=== PATIENT | male | born 1985 | race Caucasian/White ===

== ENCOUNTER 2021-07-20 18:55 | Emergency (ER) | payer BC ==
[2021-07-20] MEDS ORDERED: Doxycycline 100 MG Cap PO ONE (19:40)
[2021-07-20] MEDS ORDERED: Sulfamethoxazole/Trimethoprim 800-160 MG Tab PO ONE (19:40)
--- NOTE | 2021-07-20 19:48 | EDM.PDOC ---
ED HPI GENERAL MEDICAL PROBLEM - General Chief Complaint: Skin Complaint Stated Complaint: POSSIBLE STAPH INFECTION ON LEG Time Seen by Provider: 07/20/21 19:31 - History of Present Illness INITIAL COMMENTS - FREE TEXT/NARRATIVE: HISTORY AND PHYSICAL: History of present illness: This is a 36-year-old gentleman with no significant past medical history presents ER today secondary to area of infection to his right upper inner thigh that he identified approximately 2 to 3 days ago. Patient started getting himself injections of oxytetracycline which was intended for animal use. Patient reports that he came to the ED for further evaluation. He reports that the infection has been improving however he want to make sure that he was treating it properly so he came to the ER. Patient denies any recent fevers, shakes, chills, vomiting, diarrhea, seizure, frequency, urgency. Patient has any chest pain or shortness of breath. Patient does complain of some nausea with no vomiting or diarrhea. Review of systems: As per history of present illness and below otherwise all systems reviewed and negative. Past medical history: As per history of present illness and as reviewed below otherwise noncontributory. Surgical history: As per history of present illness and as reviewed below otherwise noncontributory. Social history: No reported history of drug abuse. Family history: As per history of present illness and as reviewed below otherwise noncontributory. Physical exam: This patient was seen and evaluated during the 2019 SARS-CoV-2 novel coronavirus pandemic period. Community viral transmission is ongoing at time of this encounter and the emergency department is operating under pandemic response procedures. Constitutional: Patient is oriented to person, place, and time. Appears well- developed and well-nourished. No distress. HEENT: Moist mucous membranes Head: Normocephalic and atraumatic Eyes: Right eye exhibits no discharge. Left eye exhibits no discharge. No scleral icterus Neck: Normal range of motion. No tracheal deviation present. Cardiovascular: Normal rate and regular rhythm. Pulmonary: Effort normal, no respiratory distress. Abdominal: No distention Musculoskeletal: Normal range of motion Neurologic: Alert and oriented to person, place and time. Skin: [place], warm and dry. Psychiatric: Normal mood and affect. Behavior is normal. Judgment and thought content normal. Nursing note and vital signs have been reviewed Patient's ER physical exam is significant for a 6 x 4 cm area of erythema and warmth to his right upper inner thigh without any vesicles fluctuance or discharge. Patient does have some tender right inguinal lymphadenopathy. Diagnostics: [] Therapeutics: [] Assessment and plan: 36-year-old gentleman who presents ER today secondary to cellulitis of his right upper inner thigh. Is unclear whether or not this might be a tickborne illness versus staph infection. Patient be discharged home with a prescription for Bactrim and doxycycline to cover for both. Patient has been instructed to follow-up with her doctor in 2 days for reevaluation and wound check. Reassessment at the time of disposition demonstrates that the patient is in no a cute distress. The patient has remained stable throughout the entire ED visit and is without objective evidence for acute process requiring urgent intervention or hospitalization. The patient is stable for discharge, counseling is provided as documented above, discussed symptomatic treatment and specific conditions for return. I have spoken with the patient/caregiver and discussed todays findings, in addition to providing specific details for the plan of care. Questions are answered and there is agreement with the plan. Definitive disposition and diagnosis as appropriate pending reevaluation and review of above. Right Upper Thigh Pain Score (Numeric/FACES): 6 - Related Data Allergies Allergy/AdvReac Type Severity Reaction Status Date / Time No Known Allergies Allergy Verified 07/20/21 19:31 Home Meds: Home Meds Doxycycline Hyclate [Vibramycin] 100 mg PO BID #20 cap 07/20/21 [Rx] Sulfamethoxazole/Trimethoprim [Bactrim Ds Tablet] 2 each PO BID #40 tablet 07/20/21 [Rx] Past Medical History Cardiovascular History: Reports: Hypertension Psychiatric History: Reports: Anxiety Dermatologic History: Reports: Other (See Below) Other Dermatologic History: MRSA - Infectious Disease History Infectious Disease History: Reports: MRSA Social & Family History - Tobacco Use Tobacco Use Status *Q: Never Tobacco User Second Hand Smoke Exposure: No - Recreational Drug Use Recreational Drug Use: No ED ROS GENERAL - Review of Systems Review Of Systems: See Below ED EXAM, SKIN/RASH Exam: See Below Course - Vital Signs Last Recorded V/S: Last Vital Signs Temp 96.9 F 07/20/21 19:27 Pulse 109 H 07/20/21 19:27 Resp 16 07/20/21 19:27 BP 155/85 H 07/20/21 19:27 Pulse Ox 96 07/20/21 19:27 - Orders/Labs/Meds Meds: Medications Discontinued Medications Generic Name Dose Route Start Last Admin Trade Name Luz PRN Reason Stop Dose Admin Doxycycline Hyclate 100 mg 07/20/21 19:40 Doxycycline 100 Mg Cap PO 07/20/21 19:41 ONETIME ONE Trimethoprim/Sulfamethoxazole 2 tab 07/20/21 19:40 Sulfamethoxazole/Trimethoprim 800-160 Mg Tab PO 07/20/21 19:41 ONETIME ONE Departure - Departure Time of Disposition: 19:49 Disposition: Home, Self-Care 01 Condition: Good Clinical Impression: Cellulitis - Discharge Information Instructions: Cellulitis, Adult Referrals: Chel Navarro NP [Primary Care Provider] - Additional Instructions: Your seen and evaluated in ER today secondary to a cellulitis to your right upper inner thigh. You will be given 2 antibiotics to cover for staph as well as other possible tickborne illnesses. You need to take Bactrim DS 2 pills twice a day for 10 days as well as doxycycline 100 mg twice a day for 10 days. Please make an appointment to see your family doctor in 2 to 3 days for reevaluation. Return to the ER sooner if you develop any new or concerning symptoms. The following information is given to patients seen in the emergency department who are being discharged to home. This information is to outline your options for follow-up care. We provide all patients seen in our emergency department with a follow-up referral. The need for follow-up, as well as the timing and circumstances, are variable depending upon the specifics of your emergency department visit. If you don't have a primary care physician on staff, we will provide you with a referral. We always advise you to contact your personal physician following an emergency department visit to inform them of the circumstance of the visit and for follow-up with them and/or the need for any referrals to a consulting specialist. The emergency department will also refer you to a specialist when appropriate. This referral assures that you have the opportunity for follow-up care with a specialist. All of these measure are taken in an effort to provide you with optimal care, which includes your follow-up. Under all circumstances we always encourage you to contact your private physician who remains a resource for coordinating your care. When calling for follow-up care, please make the office aware that this follow-up is from your recent emergency room visit. If for any reason you are refused follow-up, please contact the [facility] Emergency Department at and asked to speak to the emergency department charge nurse. [facility] [address] [place] [id number] [id number] Sepsis Event Note (ED) - Evaluation Sepsis Screening Result: No Definite Risk - Focused Exam Vital Signs: Vital Signs Temp Pulse Resp BP Pulse Ox 07/20/21 19:27 96.9 F 109 H 16 155/85 H 96
== END 2021-07-20 19:53 | disposition home or self-care (01) ==
LOC: MW.ED 18:55
DX: L03.115 Cellulitis of right lower limb (principal); I10 Essential (primary) hypertension
CPT/HCPCS: 99283; A9270

== ENCOUNTER 2021-08-11 02:29 | Emergency (ER) | payer BC ==
--- NOTE | 2021-08-11 02:32 | EDM.PDOC ---
ED HPI GENERAL MEDICAL PROBLEM - General Stated Complaint: HEART ATTACK Time Seen by Provider: 08/11/21 02:32 Source of Information: Reports: Patient History Limitations: Reports: No Limitations - History of Present Illness INITIAL COMMENTS - FREE TEXT/NARRATIVE: 36-year-old male past medical history umbilical hernia defect, recent COVID-19 infection released from quarantine 1 week ago presents for chest pain. Patient states that he woke up around 1 hour prior to arrival with the pain in his substernal chest/midepigastrium radiating into his right shoulder and upper back. He has not had pain like this in the past. He notes mild shortness of breath. He notes nausea and did have one episode of vomiting. Notes that he has been feeling much better from his recent COVID-19 infection until today. chest/epigastric Pain Score (Numeric/FACES): 10 - Related Data Allergies Allergy/AdvReac Type Severity Reaction Status Date / Time No Known Allergies Allergy Verified 08/11/21 02:35 Home Meds: Home Meds Nebivolol [Bystolic] 10 mg PO DAILY 08/11/21 [History] Past Medical History Cardiovascular History: Reports: Hypertension Psychiatric History: Reports: Anxiety Dermatologic History: Reports: Other (See Below) Other Dermatologic History: MRSA - Infectious Disease History Infectious Disease History: Reports: MRSA ED ROS GENERAL - Review of Systems Review Of Systems: Comprehensive ROS is negative, except as noted in HPI. ED EXAM, GENERAL - Physical Exam Exam: See Below Exam Limited By: No Limitations General Appearance: Alert, WD/WN, No Apparent Distress Ears: Hearing Grossly Normal Throat/Mouth: Normal Voice, No Airway Compromise Head: Atraumatic, Normocephalic Neck: Normal Inspection Respiratory/Chest: No Respiratory Distress, Lungs Clear, Normal Breath Sounds, No Accessory Muscle Use Cardiovascular: Normal Peripheral Pulses, Regular Rate, Rhythm, No Edema GI/Abdominal: Soft, Non-Tender, Other (Umbilical hernia defect easily reducible) Extremities: Normal Inspection Neurological: Alert, Normal Cognition, Normal Gait Psychiatric: Normal Affect, Normal Mood Skin Exam: Warm, Dry, Intact, Normal Color #1 Interpretation EKG Date: 08/11/21 Time: 02:32 Rhythm: NSR Rate (Beats/Min): 79 [place]: Normal P-Wave: Present QRS: Normal ST-T: Other (diffuse <1mm RJ concerning for pericarditis) OK/PQ Interval: 186 Comparison: NA - No Prior EKG EKG Interpretation Comments: possible pericarditis Course - Vital Signs Last Recorded V/S: Last Vital Signs Temp 97.5 F 08/11/21 02:30 Pulse 76 08/11/21 03:30 Resp 16 08/11/21 03:30 BP 134/75 08/11/21 03:30 Pulse Ox 95 08/11/21 03:30 - Orders/Labs/Meds Orders: Active Orders 24 hr Category Date Time Status Nitroglycerin [Nitrostat] Med 08/11/21 02:36 Active 0.4 mg SL Q5M PRN Saline Lock Insert [OM.PC] Stat Oth 08/11/21 02:37 Ordered Medication Orders Nitroglycerin (Nitroglycerin 0.4 Mg Tab.Sl) 0.4 mg SL Q5M PRN PRN Reason: Chest Pain Last Admin: 08/11/21 02:56 Dose: 0.4 mg Documented by: Admin: 08/11/21 02:49 Dose: 0.4 mg Documented by: SANDOVAL Labs: Laboratory Tests 08/11/21 08/11/21 08/11/21 Range/Units 02:50 02:50 02:50 WBC 6.06 (4.0-11.0) K/uL RBC 5.31 (4.50-5.90) M/uL Hgb 17.5 H (13.0-17.0) g/dL Hct 50.4 H (38.0-50.0) % MCV 94.9 (80.0-98.0) fL MCH 33.0 H (27.0-32.0) pg MCHC 34.7 (31.0-37.0) g/dL RDW Std Deviation 46.2 (28.0-62.0) fl RDW Coeff of Hilda 13 (11.0-15.0) % Plt Count 422 H (150-400) K/uL MPV 11.20 (7.40-12.00) fL Neut % (Auto) 56.5 (48.0-80.0) % Lymph % (Auto) 32.7 (16.0-40.0) % [place] % (Auto) 9.2 (0.0-15.0) % Eos % (Auto) 1.3 (0.0-7.0) % Baso % (Auto) 0.3 (0.0-1.5) % Neut # (Auto) 3.4 (1.4-5.7) K/uL Lymph # (Auto) 2.0 (0.6-2.4) K/uL [place] # (Auto) 0.6 (0.0-0.8) K/uL Eos # (Auto) 0.1 (0.0-0.7) K/uL Baso # (Auto) 0.0 (0.0-0.1) K/uL Nucleated RBC % 0.0 /100WBC Nucleated RBCs # 0 K/uL D-Dimer, Quantitative 0.25 (0.0-0.50) mg/L FEU Sodium 140 (136-148) mmol/L Potassium 5.0 (3.5-5.1) mmol/L Chloride 104 (98-107) mmol/L Carbon Dioxide 27.1 (21.0-32.0) mmol/L BUN 17 (7.0-18.0) mg/dL Creatinine 1.1 (0.8-1.3) mg/dL Est Cr Clr Drug Dosing 105.86 mL/min Estimated GFR (MDRD) > 60.0 ml/min Glucose 124 H (74-106) mg/dL Calcium 8.7 (8.5-10.1) mg/dL Magnesium 2.0 (1.8-2.4) mg/dL Total Bilirubin 0.5 (0.2-1.0) mg/dL AST 56 H (15-37) IU/L ALT 57 (14-63) IU/L Alkaline Phosphatase 69 (46-116) U/L Troponin I < 0.050 (0.000-0.056) ng/mL Total Protein 7.6 (6.4-8.2) g/dL Albumin 3.5 (3.4-5.0) g/dL Globulin 4.1 H (2.6-4.0) g/dL Albumin/Globulin Ratio 0.9 (0.9-1.6) Lipase 224 (73-393) U/L 08/11/21 Range/Units 05:00 WBC (4.0-11.0) K/uL RBC (4.50-5.90) M/uL Hgb (13.0-17.0) g/dL Hct (38.0-50.0) % MCV (80.0-98.0) fL MCH (27.0-32.0) pg MCHC (31.0-37.0) g/dL RDW Std Deviation (28.0-62.0) fl RDW Coeff of Hilda (11.0-15.0) % Plt Count (150-400) K/uL MPV (7.40-12.00) fL Neut % (Auto) (48.0-80.0) % Lymph % (Auto) (16.0-40.0) % [place] % (Auto) (0.0-15.0) % Eos % (Auto) (0.0-7.0) % Baso % (Auto) (0.0-1.5) % Neut # (Auto) (1.4-5.7) K/uL Lymph # (Auto) (0.6-2.4) K/uL [place]son # (Auto) (0.0-0.8) K/uL Eos # (Auto) (0.0-0.7) K/uL Baso # (Auto) (0.0-0.1) K/uL Nucleated RBC % /100WBC Nucleated RBCs # K/uL D-Dimer, Quantitative (0.0-0.50) mg/L FEU Sodium (136-148) mmol/L Potassium (3.5-5.1) mmol/L Chloride (98-107) mmol/L Carbon Dioxide (21.0-32.0) mmol/L BUN (7.0-18.0) mg/dL Creatinine (0.8-1.3) mg/dL Est Cr Clr Drug Dosing mL/min Estimated GFR (MDRD) ml/min Glucose (74-106) mg/dL Calcium (8.5-10.1) mg/dL Magnesium (1.8-2.4) mg/dL Total Bilirubin (0.2-1.0) mg/dL AST (15-37) IU/L ALT (14-63) IU/L Alkaline Phosphatase (46-116) U/L Troponin I < 0.050 (0.000-0.056) ng/mL Total Protein (6.4-8.2) g/dL Albumin (3.4-5.0) g/dL Globulin (2.6-4.0) g/dL Albumin/Globulin Ratio (0.9-1.6) Lipase (73-393) U/L Meds: Medications Generic Name Dose Route Start Last Admin Trade Name Lawrenceq PRN Reason Stop Dose Admin Nitroglycerin 0.4 mg 08/11/21 02:36 08/11/21 02:56 Nitroglycerin 0.4 Mg Tab.Sl SL 0.4 mg Q5M PRN Administration Chest Pain Discontinued Medications Generic Name Dose Route Start Last Admin Trade Name Freq PRN Reason Stop Dose Admin Aspirin 324 mg 08/11/21 02:36 08/11/21 02:49 Aspirin 81 Mg Tab.Chew PO 08/11/21 02:37 324 mg ONETIME ONE Administration Al Hydroxide/Mg Hydroxide 15 0 ml 08/11/21 02:36 08/11/21 02:55 ml/ Lidocaine HCl 5 ml PO 08/11/21 02:37 20 each ONETIME ONE Administration Famotidine 20 mg 08/11/21 02:36 08/11/21 02:48 Famotidine 20 Mg/2 Ml Sdv IVPUSH 08/11/21 02:37 20 mg ONETIME ONE Administration Lidocaine HCl Confirm 08/11/21 02:52 08/11/21 02:58 Lidocaine 2% Viscous Solution 15 Ml Cup Administered 08/11/21 02:53 Not Giv en Dose 15 ml .ROUTE .STK-MED ONE Morphine Sulfate 4 mg 08/11/21 03:04 08/11/21 03:12 Morphine 4 Mg/Ml Vial IVPUSH 08/11/21 03:05 4 mg ONETIME ONE Administration Oxycodone/Acetaminophen 1 tab 08/11/21 04:53 08/11/21 05:04 Acetaminophen/Oxycodone 325-5 Mg Tab PO 08/11/21 04:54 1 tab ONETIME ONE Administration - Re-Assessments/Exams Free Text/Narrative Re-Assessment/Exam: 08/11/21 03:03 Patient notes that his stomach and chest are feeling much better but he is still having significant back pain. Will trial morphine. 08/11/21 03:45 Initial troponin is negative. Will get a repeat troponin at 5 AM. 08/11/21 05:48 Repeat troponin is negative. Patient is well-appearing. No longer complaining of pain. Will discharge with instructions follow-up with primary care physician. Uncertainty of today's event was explained to patient. Return precautions were discussed. Departure - Departure Time of Disposition: 05:48 Disposition: Home, Self-Care 01 Condition: Good Clinical Impression: Chest pain Qualifiers: Chest pain type: unspecified Qualified Code(s): R07.9 - Chest pain, unspecified - Discharge Information Instructions: Nonspecific Chest Pain, Adult Referrals: Chel Navarro NP [Primary Care Provider] - Additional Instructions: The following information is given to patients seen in the emergency department who are being discharged to home. This information is to outline your options for follow-up care. We provide all patients seen in our emergency department with a follow-up referral. The need for follow-up, as well as the timing and circumstances, are variable depending upon the specifics of your emergency department visit. If you don't have a primary care physician on staff, we will provide you with a referral. We always advise you to contact your personal physician following an emergency department visit to inform them of the circumstance of the visit and for follow-up with them and/or the need for any referrals to a consulting specialist. The emergency department will also refer you to a specialist when appropriate. This referral assures that you have the opportunity for follow-up care with a specialist. All of these measure are taken in an effort to provide you with optimal care, which includes your follow-up. Under all circumstances we always encourage you to contact your private physician who remains a resource for coordinating your care. When calling for follow-up care, please make the office aware that this follow-up is from your recent emergency room visit. If for any reason you are refused follow-up, please contact the [facility] Emergency Department at and asked to speak to the emergency department charge nurse. Please follow up with your primary care physician. If you do not have a primary care physician, see below: [facility] [address] [place] [address] [id number] [address] [address] [facility] [address] [place] [id number] Sepsis Event Note (ED) - Focused Exam Vital Signs: Vital Signs Temp Pulse Resp BP BP Pulse Ox 08/11/21 03:30 76 16 134/75 95 08/11/21 02:56 130/75 08/11/21 02:49 156/101 H 08/11/21 02:30 97.5 F 72 18 156/101 H 97 - My Orders Last 24 Hours: My Active Orders 08/11/21 02:36 Nitroglycerin [Nitrostat] 0.4 mg SL Q5M PRN 08/11/21 02:37 Saline Lock Insert [OM.PC] Stat - Assessment/Plan Last 24 Hours: My Active Orders 08/11/21 02:36 Nitroglycerin [Nitrostat] 0.4 mg SL Q5M PRN 08/11/21 02:37 Saline Lock Insert [OM.PC] Stat
[2021-08-11] MEDS ORDERED: Aspirin 81 MG Tab.Chew PO ONE (02:36)
[2021-08-11] MEDS ORDERED: Famotidine 20 MG/2 ML SDV IVPUSH ONE (02:36)
[2021-08-11] MEDS ORDERED: Alum Hydrox/Mag Hydrox/Simeth 15 ML, Lidocaine 2% 5 ML PO ONE ×2 (02:36)
[2021-08-11] MEDS: Nitroglycerin 0.4 MG Tab.SL SL PRN ×2 (02:49→02:56)
[2021-08-11] MEDS ORDERED: Lidocaine 2% Viscous Solution 15 ML Cup ONE (02:52)
[2021-08-11] MEDS ORDERED: Aluminum Hydroxide/Magnesium Hydroxide/Simethicone XS Susp 30 ML Cup ONE (02:53)
[2021-08-11] MEDS ORDERED: Morphine 4 MG/ML VIAL IVPUSH ONE (03:04)
--- NOTE | 2021-08-11 03:38 | CR ---
Indication: Chest pain Technique: Chest 1 view Comparison: None Findings/Impression: Cardiovascular and mediastinum: Heart size and vasculature are normal in caliber and appearance. Mediastinum is within normal limits. Lungs and pleural space: Lungs are clear. No sign of infiltrate or mass. No sign of pleural effusion. No pneumothorax. Bones and soft tissues: No significant findings. Dictated by Bonnie Faulkner MD @ 08/11/2021 3:36:06 AM (Electronically Signed)
[2021-08-11 03:39] LABS: BLOOD UREA NITROGEN,BUN 17 mg/dL (7.0-18.0); CARBON DIOXIDE,CO2 27.1 mmol/L (21.0-32.0); CHLORIDE,CL 104 mmol/L (98-107); GLUCOSE RANDOM 124 mg/dL (74-106); LIPASE 224 U/L (73-393); SODIUM,NA 140 mmol/L (136-148)
[2021-08-11] MEDS ORDERED: Acetaminophen/oxyCODONE 325-5 MG Tab PO ONE (04:53)
== END 2021-08-11 05:55 | disposition home or self-care (01) ==
LOC: MW.ED 02:29
DX: R07.2 Precordial pain (principal); I10 Essential (primary) hypertension; Z79.899 Other long term (current) drug therapy
CPT/HCPCS: 36415; 71045; 80053; 83690; 83735; 84484; 85025; 85379; 93005; 96374; 96375; 99285; A9270; J2270; J3490

== ENCOUNTER 2024-06-17 16:53 | Emergency (ER) | payer BC ==
[2024-06-17 17:26] LABS: BASOPHILS ABSOLUTE AUTO 0.03 K/uL (0.00-0.20); BASOPHILS PERCENT AUTO 0.6 % (0.0-1.0); EOSINOPHILS ABSOLUTE AUTO 0.01 K/uL (0.00-0.45); EOSINOPHILS PERCENT AUTO 0.2 % (0.0-6.0); HEMATOCRIT 51.2 % (42.0-52.0); HEMOGLOBIN 18.3 g/dL (14.0-18.0); IMMATURE GRAN ABSOLUTE AUTO 0.01 K/uL (0.00-0.05); IMMATURE GRAN PERCENT AUTO 0.2 % (0.0-0.4); LYMPHOCYTES ABSOLUTE AUTO 1.92 K/uL (1.00-4.80); LYMPHOCYTES PERCENT AUTO 36.2 % (24.0-44.0); MEAN CORPUSCULAR HEMOGLOBIN 33.6 pg (28.0-32.0); MEAN CORPUSCULAR HGB CONC 35.7 g/dL (32.0-36.0); MEAN CORPUSCULAR VOLUME 94.1 fL (83.0-99.0); MEAN PLATELET VOLUME 9.5 fL (9.4-12.4); MONOCYTES ABSOLUTE AUTO 0.47 K/uL (0.00-0.80); MONOCYTES PERCENT AUTO 8.9 % (0.0-8.0); NEUTROPHILS ABSOLUTE AUTO 2.87 K/uL (1.80-7.70); NEUTROPHILS PERCENT AUTO 53.9 % (41.0-71.0); PLATELET COUNT,PLT 164 K/uL (150-400); RED BLOOD CELL COUNT 5.44 M/uL (4.52-5.90); WHITE BLOOD CELL COUNT,WBC 5.31 K/uL (3.9-11.3)
[2024-06-17] MEDS: LORazepam 2 MG/ML SDV IVPUSH ONE ×2 (17:57→20:39)
[2024-06-17] MEDS: Sodium Chloride 0.9% 1,000 ML IV ONE ×2 (17:57→20:39)
[2024-06-17 18:01] LABS: A/G RATIO 1.1 (0.9-1.6); ACETAMINOPHEN <2.0 ug/mL; ALANINE AMINOTRANSFERASE,ALT 224 IU/L (14-63); ALBUMIN 4.4 g/dL (3.4-5.0); ALKALINE PHOSPHATASE 91 U/L (46-116); ASPARTATE AMNIOTRANSFERASE,AST 423 IU/L (15-37); BILIRUBIN TOTAL 1.4 mg/dL (0.2-1.0); BLOOD UREA NITROGEN,BUN 15 mg/dL (7.0-18.0); CALCIUM 8.5 mg/dL (8.5-10.1); CARBON DIOXIDE,CO2 23.6 mmol/L (21.0-32.0); CHLORIDE,CL 103 mmol/L (98-107); CREATININE 1.2 mg/dL (0.8-1.3); EST CRCL DRUG DOSING (CG) 94.19 mL/min; GLUCOSE RANDOM 106 mg/dL (74-106); MAGNESIUM 1.9 mg/dL (1.8-2.4); POTASSIUM,K 4.3 mmol/L (3.5-5.1); PROTEIN TOTAL,TP 8.5 g/dL (6.4-8.2); SALICYLATE <0.2 mg/dL (0.0-20.0); SODIUM,NA 141 mmol/L (136-148); T3 FREE 2.84 pg/mL (2.18-3.98); T4 FREE 0.75 ng/dL (0.76-1.46); TSH ULTRASENSITIVE 1.09 uIU/mL (0.36-3.74)
[2024-06-17 18:03] LABS: ESTIMATED GFR 78 mL/min (>60); ETHANOL BLOOD MEDICAL 414 mg/dL
[2024-06-17 18:48] LABS: INR 0.99 (0.86-1.11)
[2024-06-17 20:07] LABS: APPEARANCE,URINE CLEAR; COLOR,URINE ORANGE; GLUCOSE,URINE NEGATIVE (NEGATIVE); KETONES,URINE >=80 mg/dL (NEGATIVE); LEUKOCYTE ESTERASE,URINE NEGATIVE (NEGATIVE); NITRITE,URINE NEGATIVE (NEGATIVE); OCCULT BLOOD,URINE SMALL (NEGATIVE); PROTEIN,URINE 100 mg/dL (NEGATIVE)
[2024-06-17 20:15] LABS: AMPHETAMINES SCREEN, URINE NEGATIVE (CUTOFF=500); BARBITURATE SCREEN,URINE NEGATIVE (CUTOFF=200); BENZODIAZEPINES SCREEN,URINE PRESUMPTIVE POSITIVE (CUTOFF=150); BUPRENORPHINE SCREEN,URINE PRESUMPTIVE POSITIVE (CUTOFF=10); METHADONE SCREEN, URINE NEGATIVE (CUTOFF=200); METHAMPHETAMINES SCREEN, URINE NEGATIVE (CUTOFF=500); OXYCODONE SCREEN,URINE NEGATIVE (CUT0FF=100); PCP SCREEN,URINE NEGATIVE (CUTOFF=25); THC SCREEN,URINE 20 NG/ML NEGATIVE (CUTOFF=50)
[2024-06-17 20:24] LABS: BILIRUBIN,URINE SMALL (NEGATIVE)
[2024-06-17 20:25] LABS: EPITHELIAL CELLS,URINE RARE (NONE-FEW); OTHER CRYSTALS,URINE RARE; RBC,URINE 0-1 (0-2/HPF); WBC,URINE NONE SEEN (0-5/HPF)
[2024-06-17] MEDS: Ondansetron 4 MG/2 ML SDV IVPUSH ONE (22:16)
[2024-06-17] MEDS: Ondansetron 4 MG Tab.DIS PO ONE (22:20)
== END 2024-06-17 22:26 | disposition home or self-care (01) ==
LOC: MW.ED 16:53
DX: F10.10 Alcohol abuse, uncomplicated (principal); R74.01 Elevation of levels of liver transaminase levels; I10 Essential (primary) hypertension; Z75.8 Other problems related to medical facilities and other health care
CPT/HCPCS: 36415; 76705; 80053; 80143; 80179; 80305; 80307; 81001; 83690; 83735; 84439; 84443; 84481; 84484; 85025; 85610; 85730; 93005; 96361; 96374; 96376; 99285; A9270; J2060; J7030

== ENCOUNTER 2024-06-18 20:16 | Emergency (ER) | payer BC ==
[2024-06-18] MEDS: LORazepam 2 MG/ML SDV IVPUSH ONE (20:47)
[2024-06-18] MEDS: Sodium Chloride 0.9% 1,000 ML IV ONE ×2 (20:47→21:31)
[2024-06-18] MEDS: Sodium Chloride 0.9% 2.5 ML Syringe FLUSH PRN (20:48)
[2024-06-18] MEDS: Sodium Chloride 0.9% 10 ML Syringe FLUSH PRN (20:48)
[2024-06-18 20:52] LABS: BASOPHILS ABSOLUTE AUTO 0.01 K/uL (0.00-0.20); BASOPHILS PERCENT AUTO 0.2 % (0.0-1.0); HEMATOCRIT 46.5 % (42.0-52.0); HEMOGLOBIN 16.3 g/dL (14.0-18.0); IMMATURE GRAN ABSOLUTE AUTO 0.01 K/uL (0.00-0.05); IMMATURE GRAN PERCENT AUTO 0.2 % (0.0-0.4); LYMPHOCYTES ABSOLUTE AUTO 0.79 K/uL (1.00-4.80); LYMPHOCYTES PERCENT AUTO 19.6 % (24.0-44.0); MEAN CORPUSCULAR HEMOGLOBIN 33.8 pg (28.0-32.0); MEAN CORPUSCULAR HGB CONC 35.1 g/dL (32.0-36.0); MEAN CORPUSCULAR VOLUME 96.5 fL (83.0-99.0); MEAN PLATELET VOLUME 9.8 fL (9.4-12.4); MONOCYTES ABSOLUTE AUTO 0.25 K/uL (0.00-0.80); MONOCYTES PERCENT AUTO 6.2 % (0.0-8.0); NEUTROPHILS ABSOLUTE AUTO 2.97 K/uL (1.80-7.70); NEUTROPHILS PERCENT AUTO 73.8 % (41.0-71.0); PLATELET COUNT,PLT 136 K/uL (150-400); RED BLOOD CELL COUNT 4.82 M/uL (4.52-5.90); WHITE BLOOD CELL COUNT,WBC 4.03 K/uL (3.9-11.3)
[2024-06-18 21:23] LABS: ALBUMIN 4.2 g/dL (3.4-5.0); BILIRUBIN TOTAL 1.3 mg/dL (0.2-1.0); CALCIUM 8.2 mg/dL (8.5-10.1); CARBON DIOXIDE,CO2 19.6 mmol/L (21.0-32.0); CREATININE 1.1 mg/dL (0.8-1.3); EST CRCL DRUG DOSING (CG) 102.75 mL/min; POTASSIUM,K 4.4 mmol/L (3.5-5.1); PROTEIN TOTAL,TP 8.2 g/dL (6.4-8.2)
[2024-06-18] MEDS: Propranolol 40 MG Tab PO ONE (22:44)
[2024-06-19] MEDS ORDERED: Propranolol 40 MG Tab PO ONE (22:11)
== END 2024-06-18 23:14 | disposition home or self-care (01) ==
LOC: MW.ED 20:16
DX: F10.129 Alcohol abuse with intoxication, unspecified (principal); Z75.8 Other problems related to medical facilities and other health care; Z79.899 Other long term (current) drug therapy
CPT/HCPCS: 36415; 80053; 80307; 85025; 96361; 96374; 99284; J2060; J3490; J7030

== ENCOUNTER 2024-06-19 15:15 | Emergency (ER) | payer BC ==
[2024-06-19 15:42] LABS: BASOPHILS ABSOLUTE AUTO 0.02 K/uL (0.00-0.20); BASOPHILS PERCENT AUTO 0.5 % (0.0-1.0); EOSINOPHILS ABSOLUTE AUTO 0.02 K/uL (0.00-0.45); EOSINOPHILS PERCENT AUTO 0.5 % (0.0-6.0); HEMATOCRIT 46.3 % (42.0-52.0); HEMOGLOBIN 16.2 g/dL (14.0-18.0); IMMATURE GRAN ABSOLUTE AUTO 0.01 K/uL (0.00-0.05); IMMATURE GRAN PERCENT AUTO 0.2 % (0.0-0.4); LYMPHOCYTES ABSOLUTE AUTO 1.16 K/uL (1.00-4.80); MEAN CORPUSCULAR HEMOGLOBIN 33.2 pg (28.0-32.0); MEAN CORPUSCULAR VOLUME 94.9 fL (83.0-99.0); MEAN PLATELET VOLUME 9.8 fL (9.4-12.4); MONOCYTES ABSOLUTE AUTO 0.36 K/uL (0.00-0.80); MONOCYTES PERCENT AUTO 8.7 % (0.0-8.0); NEUTROPHILS ABSOLUTE AUTO 2.57 K/uL (1.80-7.70); NEUTROPHILS PERCENT AUTO 62.1 % (41.0-71.0); PLATELET COUNT,PLT 149 K/uL (150-400); RED BLOOD CELL COUNT 4.88 M/uL (4.52-5.90); WHITE BLOOD CELL COUNT,WBC 4.14 K/uL (3.9-11.3)
[2024-06-19 15:54] LABS: A/G RATIO 1.1 (0.9-1.6); ALBUMIN 4.2 g/dL (3.4-5.0); BILIRUBIN TOTAL 1.7 mg/dL (0.2-1.0); CALCIUM 8.2 mg/dL (8.5-10.1); CARBON DIOXIDE,CO2 22.5 mmol/L (21.0-32.0); EST CRCL DRUG DOSING (CG) 113.03 mL/min; POTASSIUM,K 4.4 mmol/L (3.5-5.1)
[2024-06-19 16:04] LABS: TSH ULTRASENSITIVE 0.81 uIU/mL (0.36-3.74)
[2024-06-19] MEDS: hydrOXYzine HCl 25 MG Tab PO ONE (16:17)
== END 2024-06-19 17:23 | disposition home or self-care (01) ==
LOC: MW.ED 15:15
DX: R74.01 Elevation of levels of liver transaminase levels (principal); F10.10 Alcohol abuse, uncomplicated; I10 Essential (primary) hypertension; Z79.899 Other long term (current) drug therapy; Z75.8 Other problems related to medical facilities and other health care
CPT/HCPCS: 36415; 71045; 80053; 80307; 84443; 84484; 85025; 93005; 99285; A9270; 99284

== ENCOUNTER 2024-06-19 22:32 | Emergency (ER) | payer BC ==
[2024-06-19] MEDS: Sodium Chloride 0.9% 1,000 ML IV ONE (23:43)
[2024-06-19] MEDS: Sodium Chloride 0.9% 10 ML Syringe FLUSH PRN (23:44)
[2024-06-19] MEDS: Sodium Chloride 0.9% 2.5 ML Syringe FLUSH PRN (23:44)
[2024-06-19] MEDS: Ondansetron 4 MG/2 ML SDV IVPUSH ONE (23:47)
[2024-06-19] MEDS: Famotidine 20 MG/2 ML SDV IVPUSH ONE (23:47)
[2024-06-20] MEDS: Buprenorphine/Naloxone 8-2 MG Tab.SL SL ONE (00:07)
== END 2024-06-20 01:08 | disposition home or self-care (01) ==
LOC: MW.ED 22:32
DX: F10.220 Alcohol dependence with intoxication, uncomplicated (principal); I10 Essential (primary) hypertension; Z79.899 Other long term (current) drug therapy
CPT/HCPCS: 96361; 96374; 96375; 99284; J0574; J2405; J3360; J3490; J7030

== ENCOUNTER 2024-06-20 07:10 | Emergency (ER) | payer BC ==
[2024-06-20] MEDS ORDERED: Sodium Chloride 0.9% 2.5 ML Syringe FLUSH PRN (07:45)
[2024-06-20] MEDS ORDERED: Diazepam 2 MG Tab PO ONE (07:45)
[2024-06-20] MEDS ORDERED: Sodium Chloride 0.9% 10 ML Syringe FLUSH PRN (07:45)
[2024-06-20] MEDS: Sodium Chloride 0.9% 1,000 ML IV STA (08:02)
[2024-06-20] MEDS: Diazepam 5 MG Tab PO ONE (08:03)
== END 2024-06-20 08:47 | disposition home or self-care (01) ==
LOC: MW.ED 07:10
DX: F10.10 Alcohol abuse, uncomplicated (principal); I10 Essential (primary) hypertension; Z90.49 Acquired absence of other specified parts of digestive tract; Z79.899 Other long term (current) drug therapy
CPT/HCPCS: 99283; A9270; J7030

== ENCOUNTER 2024-06-21 12:43 | Emergency (ER) | payer BC ==
[2024-06-21 14:13] LABS: HEMOGLOBIN A1C 4.9 %
[2024-06-21 14:34] LABS: A/G RATIO 1.1 (0.9-1.6); ALBUMIN 3.8 g/dL (3.4-5.0); BILIRUBIN TOTAL 1.4 mg/dL (0.2-1.0); CALCIUM 8.5 mg/dL (8.5-10.1); CARBON DIOXIDE,CO2 25.8 mmol/L (21.0-32.0); EST CRCL DRUG DOSING (CG) 113.03 mL/min; POTASSIUM,K 3.9 mmol/L (3.5-5.1); PROTEIN TOTAL,TP 7.3 g/dL (6.4-8.2)
[2024-06-21] MEDS ORDERED: Sodium Chloride 0.9% 10 ML Syringe FLUSH PRN (15:17)
[2024-06-21] MEDS ORDERED: Sodium Chloride 0.9% 2.5 ML Syringe FLUSH PRN (15:17)
[2024-06-21 15:38] LABS: BASOPHILS ABSOLUTE AUTO 0.01 K/uL (0.00-0.20); BASOPHILS PERCENT AUTO 0.3 % (0.0-1.0); EOSINOPHILS ABSOLUTE AUTO 0.01 K/uL (0.00-0.45); EOSINOPHILS PERCENT AUTO 0.3 % (0.0-6.0); HEMATOCRIT 41.4 % (42.0-52.0); HEMOGLOBIN 14.9 g/dL (14.0-18.0); IMMATURE GRAN ABSOLUTE AUTO 0.01 K/uL (0.00-0.05); IMMATURE GRAN PERCENT AUTO 0.3 % (0.0-0.4); LYMPHOCYTES ABSOLUTE AUTO 0.58 K/uL (1.00-4.80); LYMPHOCYTES PERCENT AUTO 17.4 % (24.0-44.0); MEAN CORPUSCULAR HEMOGLOBIN 34.3 pg (28.0-32.0); MEAN CORPUSCULAR VOLUME 95.2 fL (83.0-99.0); MEAN PLATELET VOLUME 10.9 fL (9.4-12.4); MONOCYTES ABSOLUTE AUTO 0.29 K/uL (0.00-0.80); MONOCYTES PERCENT AUTO 8.7 % (0.0-8.0); NEUTROPHILS ABSOLUTE AUTO 2.43 K/uL (1.80-7.70); PLATELET COUNT,PLT 101 K/uL (150-400); RED BLOOD CELL COUNT 4.35 M/uL (4.52-5.90); WHITE BLOOD CELL COUNT,WBC 3.33 K/uL (3.9-11.3)
[2024-06-21 15:49] LABS: TSH ULTRASENSITIVE 0.47 uIU/mL (0.36-3.74)
[2024-06-21] MEDS: Iopamidol 755 MG/ML 500 ML Multipack Bottle IVPUSH STA (16:03)
[2024-06-21 16:22] LABS: CORONAVIRUS COVID-19 NAA NEGATIVE (NEGATIVE); INFLUENZA A NAA NEGATIVE (NEGATIVE); INFLUENZA B NAA NEGATIVE (NEGATIVE); RESPIRATORY SYNCYTIAL VIR NAA NEGATIVE (NEGATIVE)
== END 2024-06-21 18:40 | disposition home or self-care (01) ==
LOC: MW.ED 12:43
DX: K42.9 Umbilical hernia without obstruction or gangrene (principal); I10 Essential (primary) hypertension; K21.9 Gastro-esophageal reflux disease without esophagitis; Z79.899 Other long term (current) drug therapy; Z75.8 Other problems related to medical facilities and other health care
CPT/HCPCS: 0241U; 36415; 74177; 80053; 83036; 83690; 84443; 84484; 85025; 93005; 99285; Q9967; 99283

== ENCOUNTER 2024-12-22 11:09 | Emergency (ER) | payer BC ==
[2024-12-22 12:01] LABS: BASOPHILS ABSOLUTE AUTO 0.03 K/uL (0.00-0.20); BASOPHILS PERCENT AUTO 0.5 % (0.0-1.0); EOSINOPHILS ABSOLUTE AUTO 0.03 K/uL (0.00-0.45); EOSINOPHILS PERCENT AUTO 0.5 % (0.0-6.0); HEMATOCRIT 44.4 % (42.0-52.0); HEMOGLOBIN 15.5 g/dL (14.0-18.0); IMMATURE GRAN ABSOLUTE AUTO 0.04 K/uL (0.00-0.05); IMMATURE GRAN PERCENT AUTO 0.6 % (0.0-0.4); LYMPHOCYTES ABSOLUTE AUTO 1.25 K/uL (1.00-4.80); LYMPHOCYTES PERCENT AUTO 20.2 % (24.0-44.0); MEAN CORPUSCULAR HEMOGLOBIN 32.5 pg (28.0-32.0); MEAN CORPUSCULAR HGB CONC 34.9 g/dL (32.0-36.0); MEAN CORPUSCULAR VOLUME 93.1 fL (83.0-99.0); MEAN PLATELET VOLUME 9.5 fL (9.4-12.4); MONOCYTES ABSOLUTE AUTO 0.41 K/uL (0.00-0.80); MONOCYTES PERCENT AUTO 6.6 % (0.0-8.0); NEUTROPHILS ABSOLUTE AUTO 4.42 K/uL (1.80-7.70); NEUTROPHILS PERCENT AUTO 71.6 % (41.0-71.0); PLATELET COUNT,PLT 260 K/uL (150-400); RED BLOOD CELL COUNT 4.77 M/uL (4.52-5.90); WHITE BLOOD CELL COUNT,WBC 6.18 K/uL (3.9-11.3)
[2024-12-22 12:11] LABS: INR 1.05 (0.86-1.11)
[2024-12-22 12:43] LABS: A/G RATIO 1.1 (0.9-1.6); ALBUMIN 4.2 g/dL (3.4-5.0); BILIRUBIN TOTAL 0.5 mg/dL (0.2-1.0); CALCIUM 8.7 mg/dL (8.5-10.1); CARBON DIOXIDE,CO2 24.7 mmol/L (21.0-32.0); CREATININE 1.1 mg/dL (0.8-1.3); EST CRCL DRUG DOSING (CG) 102.75 mL/min; MAGNESIUM 1.7 mg/dL (1.8-2.4); POTASSIUM,K 4.8 mmol/L (3.5-5.1)
[2024-12-22] MEDS: Magnesium Oxide 400 MG Tab PO STA (13:09)
== END 2024-12-22 13:14 | disposition home or self-care (01) ==
LOC: MW.ED 11:09
DX: R07.9 Chest pain, unspecified (principal); E83.42 Hypomagnesemia; I10 Essential (primary) hypertension; Z75.8 Other problems related to medical facilities and other health care; Z79.899 Other long term (current) drug therapy; Z90.49 Acquired absence of other specified parts of digestive tract
CPT/HCPCS: 36415; 71045; 80053; 80307; 83690; 83735; 83880; 84484; 85025; 85610; 93005; 99285; A9270; 93010; 99283